=== PATIENT | female | born 1955 | race Caucasian/White ===

== ENCOUNTER 2023-08-07 08:24 | Outpatient (CLI) | payer MEDICARE, BC, SELFPAY ==
[2023-08-07 08:57] LABS: Creatinine* 0.7 mg/dL (0.5-1.5); Estimated Glomerular Filt Rate 95 ml/min
--- NOTE | 2023-08-07 09:00 | CRLHL7_ITS ---
For Patients: As a result of the Century Cures Act, medical imaging exams and procedure reports are released immediately into your electronic medical record. You may view this report before your referring provider. If you have questions, please contact your health care provider. Indication: Umbilical discharge Technique: CT Pelvis W/ and W/O bladder contrast CYSTOGRAM, 300CC CYSTOGRAFIN administered through Gambino catheter into the bladder. Prevoid and postvoid images acquired. Please note that all CT scans at this facility use dose modulation, iterative reconstruction, and/or weight-based dosing when appropriate to reduce radiation dose to as low as reasonably achievable. Comparison: None Findings: Atherosclerotic changes are present. Gambino catheter in the bladder. No bowel obstruction, free air, free fluid or adenopathy. Chronic degenerative cystic changes about the left sacroiliac joint. No bladder stones. Right superior bladder diverticulum noted measuring 5.3 millimeters. No bladder filling defect. No extravasation of contrast. No extension towards the umbilicus. No umbilical hernia. Minimal postvoid residual bladder volume noted. Impression: No urachal cyst or diverticulum. Small incidental bladder diverticulum measuring 5.3 millimeters. No extravasation of contrast from the bladder. Please note that all CT scans at this facility use dose modulation, iterative reconstruction, and/or weight-based dosing when appropriate to reduce radiation dose to as low as reasonably achievable. Dictated by Geovany Melgar MD @ 08/07/2023 3:39:15 PM (Electronically Signed)
--- NOTE | 2023-08-07 10:09 | PC.NURSE ---
16f valdez placed for imaging procedure. Removed once imaging was completed.
== END 2023-08-07 08:25 | disposition home or self-care (01) ==
LOC: CT 08:29
PROVIDERS: Visit Provider Surgery
DX: R19.8 Other specified symptoms and signs involving the digestive system and abdomen (principal); N32.3 Diverticulum of bladder
CPT/HCPCS: 36415; 72194; 82565; A4314; Q9958

== ENCOUNTER 2024-03-08 08:19 | Outpatient (CLI) | payer MEDICARE, BC, SELFPAY ==
--- NOTE | 2024-03-08 09:00 | CRLHL7_ITS ---
For Patients: As a result of the Century Cures Act, medical imaging exams and procedure reports are released immediately into your electronic medical record. You may view this report before your referring provider. If you have questions, please contact your health care provider. INDICATION: Mass the base of tongue. COMPARISON: None. TECHNIQUE: CT soft tissue neck with IV contrast. Isovue 370, 128 cc. FINDINGS: Normal bilateral parotid and submandibular glands. Normal thyroid gland. Scattered small normal-sized cervical lymph nodes bilaterally. No supraclavicular superior mediastinal adenopathy. Nasopharynx and oropharynx are clear. No inflammation within the paravertebral fat pads are retropharyngeal space. Normal thickness of the epiglottis. No discrete mass or abnormal enhancement at the base of tongue. Normal glottis with symmetric vocal cords. Lung apices are clear. Normal alignment of cervical spine. Cervical spondylosis. No prevertebral soft tissue swelling. Left shoulder arthroplasty IMPRESSION: 1. No abnormal mass or enhancement at the base of tongue. 2. No adenopathy. 3. Normal deep soft tissues of the neck. 4. Cervical spondylosis Please note that all CT scans at this facility use dose modulation, iterative reconstruction, and/or weight-based dosing when appropriate to reduce radiation dose to as low as reasonably achievable. Dictated by Raffi Walker MD @ 03/08/2024 11:23:59 AM (Electronically Signed)
[2024-03-08 09:02] LABS: Creatinine* 0.8 mg/dL (0.5-1.5); Estimated Glomerular Filt Rate 81 ml/min
== END 2024-03-08 08:20 | disposition home or self-care (01) ==
LOC: CT 08:24
PROVIDERS: PCP Family Medicine; Visit Provider Otolaryngology
DX: K14.8 Other diseases of tongue (principal); M47.892 Other spondylosis, cervical region
CPT/HCPCS: 36415; 70491; 82565; Q9967

== ENCOUNTER 2024-04-06 10:02 | Outpatient (CLI) | payer MEDICARE, BC, SELFPAY | END 2024-04-06 10:03 | disposition home or self-care (01) | LOC: NFLDREF 10:03 | PROVIDERS: PCP Family Medicine; Visit Provider Family Medicine | DX: I10 Essential (primary) hypertension (principal); Z01.818 Encounter for other preprocedural examination | CPT/HCPCS: 80048 ==

== ENCOUNTER 2024-09-01 09:55 | Outpatient (CLI) | payer MEDICARE, BC, SELFPAY | END 2024-09-01 09:56 | disposition home or self-care (01) | LOC: NFLDREF 09-03 07:05 | PROVIDERS: PCP Family Medicine; Referring Provider Family Medicine; Visit Provider Family Medicine | DX: E78.5 Hyperlipidemia, unspecified (principal) | CPT/HCPCS: 80053; 80061 ==

== ENCOUNTER 2024-09-15 07:36 | Outpatient (CLI) | payer MEDICARE, BC, SELFPAY ==
--- NOTE | 2024-09-15 08:00 | CRLHL7_ITS ---
For Patients: As a result of the Century Cures Act, medical imaging exams and procedure reports are released immediately into your electronic medical record. You may view this report before your referring provider. If you have questions, please contact your health care provider. INDICATION: Lung cancer screening. Smoking history. TECHNIQUE: CT chest low dose without contrast. COMPARISON: None. FINDINGS: Lungs and pleural spaces: No suspicious nodules or infiltrates. Pleural spaces are clear. Heart and vasculature: Heart size is normal. Thoracic aorta and pulmonary artery are normal in caliber. Lymph nodes and mediastinum: No mediastinal, hilar, or axillary adenopathy. Chest wall: Unremarkable. Upper abdomen: Normal. Bones: Unremarkable for age. IMPRESSION: No suspicious lung lesions. Lung-RADS Category 1: NEGATIVE. Continue annual screening, if eligible, with LDCT in 12 months. Please note that all CT scans at this facility use dose modulation, iterative reconstruction, and/or weight-based dosing when appropriate to reduce radiation dose to as low as reasonably achievable. Dictated by Dhaval Alamo MD @ 09/19/2024 9:56:33 AM (Electronically Signed)
== END 2024-09-15 07:37 | disposition home or self-care (01) ==
LOC: CT 07:39
PROVIDERS: PCP Family Medicine; Visit Provider Family Medicine
DX: Z12.2 Encounter for screening for malignant neoplasm of respiratory organs (principal); Z87.891 Personal history of nicotine dependence
CPT/HCPCS: 71271